=== PATIENT | female | born 1945 | race Caucasian/White ===

== ENCOUNTER 2020-05-08 18:24 | Observation (INO) ==
--- NOTE | 2020-05-08 18:36 | Emergency Department Note ---
History of Present Illness General Chief Complaint: Shortness of Breath/Dyspnea Stated Complaint: SHORTNESS OF BREATH w/ EXERTION Time Seen by Provider: 05/08/20 18:24 History of Present Illness Provider Complaint: chest pain Onset (ago): month(s) 2 Duration: intermittent Onset: during exertion Pain Location: substernal Pain Radiation: none Severity: moderate Current Pain Intensity: 0 Quality: + aching Relieved By: + rest Exacerbated By: + exertion Context: no recent illness, no recent surgery, no recent immobilization, no recent travel, no trauma/injury, no new medications and no history of DVT/PE Associated symptoms: + dyspnea (with exertion); no nausea, no vomiting, no diaphoresis, no palpitations, no fever, no cough and no leg swelling Patient went to her PCPs office in [place] and referred for them to the emergency department because her EKG showed a new bifascicular block. Home Medications Medication Instructions Recorded Confirmed Type aripiprazole 7.5 mg PO QAM 10/05/18 10/05/18 History atorvastatin 10 mg PO QAM 10/05/18 10/05/18 History bupropion HCl 150 mg PO QAM 10/05/18 10/05/18 History bupropion HCl 300 mg PO QAM 10/05/18 10/05/18 History clonazepam 0.5 mg PO TID PRN 10/05/18 10/05/18 History clopidogrel 75 mg PO QAM 10/05/18 10/05/18 History esomeprazole magnesium 40 mg PO QAM 10/05/18 10/05/18 History ibandronate 150 mg PO MONTHLY 10/05/18 10/05/18 History levothyroxine [Synthroid] 125 mcg PO QAM 10/05/18 10/05/18 History lisinopril 10 mg PO PM 10/05/18 10/05/18 History methylphenidate HCl 20 mg PO QAM 10/05/18 10/05/18 History metoprolol succinate [Toprol XL] 25 mg PO QAM 10/05/18 10/05/18 History nortriptyline 50 mg PO HS 10/05/18 10/05/18 History Allergies Allergy/AdvReac Type Severity Reaction Status Date / Time No Known Allergies Allergy Unverified 10/05/18 16:47 Past Med/Surg History Medical History (Updated 05/08/20 @ 19:47 by Souleymane Melo) CKD (chronic kidney disease) Depression GERD (gastroesophageal reflux disease) HLD (hyperlipidemia) HTN (hypertension) Surgical History (Updated 05/08/20 @ 18:35 by Souleymane Melo) No pertinent past surgical history Family History Other Family history non-contributory Social History Smoking Status: Former smoker Preferred Language: Danish Feels Safe at Home: Yes Review of Systems A total of 10 systems reviewed and were otherwise negative Physical Exam Vital Signs Vital Signs - 24 hr 05/08/20 18:33 05/08/20 18:39 05/08/20 18:48 Temperature 36.8 C Temperature Source Oral Pulse Rate 82 76 Pulse Rhythm Regular Respiratory Rate 17 16 Respiratory Effort / Characteristics Non-Labored Spontaneous Non-Labored Spontaneous Respiratory Depth Normal Normal Respiratory Pattern Regular Regular Blood Pressure 159/93 H Blood Pressure Mean 115 Blood Pressure Position Sitting Pulse Oximetry 100 100 Oxygen Delivery Method Room Air Room Air Room Air Sepsis Recent Fever Within 48 Hours No Sepsis New/Unexplained Change in Mental Status No Sepsis Action Taken by Nursing No Action Required Physical Exam GENERAL: She is oriented to person, place, and time. She appears well-developed and well-nourished. She does not appear distressed. HENT: Exam performed. -Head: Normocephalic and atraumatic. -Right Ear: External ear normal. No mastoid tenderness. -Left Ear: External ear normal. No mastoid tenderness. -Mouth/Throat: The oropharynx is clear and moist. No trismus in the jaw. No dental abscesses or uvula swelling. No oropharyngeal exudate or tonsillar abscesses. EYES: Conjunctivae and EOM are normal. Pupils are equal, round, and reactive to light. Right eye exhibits no discharge. Left eye exhibits no discharge. No scleral icterus. NECK: Normal range of motion. Neck supple. No JVD present. No spinous process tenderness present. No carotid bruit present. No rigidity. No tracheal deviation and normal range of motion present. No Brudzinski's sign and no Kernig's sign noted. CV: Normal rate, regular rhythm, normal heart sounds and intact distal pulses. There is no peripheral edema. Palpable radial pulses bue. PULM/CHEST: Effort normal and breath sounds normal. No respiratory distress. No stridor. She has no wheezes. She has no rales. -Chest Wall: She exhibits no tenderness. ABD: The abdomen is soft. Bowel sounds are normal. She has no distension. No mass is present. There is no tenderness. There is no rebound, no guarding, no Martin's sign and no tenderness at McBurney's point. Rovsig negative MUSC/SKEL: Normal range of motion. There is no peripheral edema, tenderness or deformity. LYMPH: No cervical adenopathy. NEURO: She is alert and oriented to person, place, and time. She has normal strength. No cranial nerve deficit or sensory deficit. Coordination and gait normal. GCS eye subscore is 4. GCS verbal subscore is 5. GCS motor subscore is 6. Cerebellar tests wnl. SKIN: Skin is warm and dry. She is not diaphoretic. PSYCH: She has a normal mood and affect. Behavior is normal. Judgment and thought content normal. Course Course 1823: The patient was evaluated in room B10. A complete history and physical ex am was performed. Cardiac monitoring: An order was placed for continuous cardiac monitoring. The monitor shows a rate of 80 with sinus rhythm 1945: Vital signs stable. Patient reports no chest pain at this time. Labs and imaging within normal limits. Patient will be admitted to the [facility] ospitalist team for chest pain rule out ACS. Dr. Mann notified Medical Decision Making Laboratory Data Result diagrams: 05/08/20 18:44 05/08/20 18:44 Labs: Lab Results 05/08/20 05/08/20 05/08/20 Range/Units 18:44 18:44 18:56 WBC 10.37 (4.8-10.8) K/uL RBC 4.37 (4.2-5.4) M/uL Hgb 13.8 (12.0-16.0) g/dL Hct 39.7 (37-47) % MCV 90.8 (80-100) fL MCH 31.6 (25-34) pg MCHC 34.8 (32-36) g/dL RDW Std Deviation 45.9 (36.4-46.3) fL RDW Coeff of Gilda 13.8 (11.5-14.5) % Plt Count 317 (130-400) K/uL MPV 10.1 (7.4-10.4) fL Immature Gran % (Auto) 0.2 % Neut % (Auto) 61.6 % Lymph % (Auto) 26.0 % [place] % (Auto) 11.1 % Eos % (Auto) 0.8 % Baso % (Auto) 0.3 % Neut # (Auto) 6.39 (1.4-6.5) K/uL Lymph # (Auto) 2.70 (1.2-3.4) K/uL [place] # (Auto) 1.15 H (0.11-0.59) K/uL Eos # (Auto) 0.08 (0-0.5) K/uL Baso # (Auto) 0.03 (0-0.2) K/uL Immature Gran # (Auto) 0.02 (0.00-0.02) K/uL Sodium 135 L (136-145) mmol/L Potassium 4.2 (3.5-5.1) mmol/L Chloride 101 (98-107) mmol/L Carbon Dioxide 26 (21-32) mmol/L Anion Gap 8.0 (3-11) BUN 22 H (7-18) mg/dl Creatinine 1.55 H (0.6-1.2) mg/dl Est Cr Clr Drug Dosing 33.7 ml/min Est GFR ( Amer) 37.6 Est GFR (Non-Af Amer) 32.4 BUN/Creatinine Ratio 14.3 (10-20) Glucose 78 (70-99) mg/dl Calcium 10.1 (8.5-10.1) mg/dl Troponin I < 0.015 (0-0.045) ng/ml Lipase 99 (73-393) U/L COVID-19 Eval Order Covid19 IDNow atMIAC SARS-CoV-2, RNA, NAAT (NEGATIVE) 05/08/20 Range/Units 18:56 WBC (4.8-10.8) K/uL RBC (4.2-5.4) M/uL Hgb (12.0-16.0) g/dL Hct (37-47) % MCV (80-100) fL MCH (25-34) pg MCHC (32-36) g/dL RDW Std Deviation (36.4-46.3) fL RDW Coeff of Gilda (11.5-14.5) % Plt Count (130-400) K/uL MPV (7.4-10.4) fL Immature Gran % (Auto) % Neut % (Auto) % Lymph % (Auto) % [place] % (Auto) % Eos % (Auto) % Baso % (Auto) % Neut # (Auto) (1.4-6.5) K/uL Lymph # (Auto) (1.2-3.4) K/uL [place] # (Auto) (0.11-0.59) K/uL Eos # (Auto) (0-0.5) K/uL Baso # (Auto) (0-0.2) K/uL Immature Gran # (Auto) (0.00-0.02) K/uL Sodium (136-145) mmol/L Potassium (3.5-5.1) mmol/L Chloride (98-107) mmol/L Carbon Dioxide (21-32) mmol/L Anion Gap (3-11) BUN (7-18) mg/dl Creatinine (0.6-1.2) mg/dl Est Cr Clr Drug Dosing ml/min Est GFR ( Amer) Est GFR (Non-Af Amer) BUN/Creatinine Ratio (10-20) Glucose (70-99) mg/dl Calcium (8.5-10.1) mg/dl Troponin I (0-0.045) ng/ml Lipase (73-393) U/L COVID-19 Eval Order SARS-CoV-2, RNA, NAAT NEGATIVE (NEGATIVE) Imaging Data Chest x-ray: Radiologist's impression: XR chest 1V portable HISTORY: 74 years-old Female cp sob acute atypical chest pain with shortness of breath COMPARISON: Chest radiograph 10/05/2018 TECHNIQUE: Portable AP view of the chest FINDINGS: Cardiac mediastinal and hilar silhouettes are within normal limits. No pneumothorax, large pleural effusion or overt pulmonary edema. Chronic blunting of the costophrenic angles. Mild linear midlung opacities are noted bilaterally. Degenerative changes of the shoulders and spine. IMPRESSION: Mild bilateral midlung opacities suggest atelectasis/scarring. ACT 112: Negative or not required by law. The above report was generated using voice recognition software. It may contain grammatical, syntax or spelling errors. Electronically signed by: Doyle Cotton M.D. 05/08/2020 7:48 PM Dictated: 05/08/201946Transcribed: 05/08/201946 ECG Data Indication: chest pain and SOB/dyspnea Rate (beats per minute): 78 Rhythm: normal sinus Findings: no ST depression, no ST elevation and no prolonged QT Additional Comments: QRS 156. Bifascicular block present. [facility] Narrative 1823: The patient was evaluated in room B10. A complete history and physical exam was performed. Cardiac monitoring: An order was placed for continuous cardiac monitoring. The monitor shows a rate of 80 with sinus rhythm 1945: Vital signs stable. Patient reports no chest pain at this time. Labs and imaging within normal limits. Patient will be admitted to the [facility] hospitalist team for chest pain rule out ACS. Dr. Mann notified Impression & Plan Chest pain Discharge Plan Visit Data Chief Complaint: Shortness of Breath/Dyspnea Stated Complaint: SHORTNESS OF BREATH w/ EXERTION ED Provider: Souleymane Melo Discharge Problem: Chest pain Patient Disposition: Being Evaluated by Hospitalist Forms Stand Alone Forms: [facility] Prescriptions Prescriptions: No Action atorvastatin 10 mg tablet 10 mg PO QAM RF: 0 clonazepam 0.5 mg tablet 0.5 mg PO TID PRN (Reason: Anxiety) RF: 0 clopidogrel 75 mg tablet 75 mg PO QAM RF: 0 esomeprazole magnesium 40 mg capsule,delayed release(DR/EC) 40 mg PO QAM RF: 0 levothyroxine [Synthroid] 125 mcg tablet 125 mcg PO QAM RF: 0 lisinopril 10 mg tablet 10 mg PO PM RF: 0 methylphenidate HCl 20 mg tablet extended release 20 mg PO QAM RF: 0 metoprolol succinate [Toprol XL] 25 mg tablet extended release 24 hr 25 mg PO QAM RF: 0 nortriptyline 50 mg capsule 50 mg PO HS RF: 0 aripiprazole 15 mg tablet 7.5 mg PO QAM RF: 0 bupropion HCl 300 mg tablet extended release 24 hr 300 mg PO QAM RF: 0 bupropion HCl 150 mg tablet extended release 24 hr 150 mg PO QAM RF: 0 ibandronate 150 mg tablet 150 mg PO MONTHLY RF: 0 Referrals Referrals: Kimberlyn Vasques DO [Primary Care Provider] - Discharge Problem: Chest pain Qualifiers: Chest pain type: unspecified Qualified Code(s): R07.9 - Chest pain, unspecified
[2020-05-08 18:55] LABS: Basophils # (auto) 0.03 K/uL (0-0.2); Basophils % (auto) 0.3 %; Eosinophils # (auto) 0.08 K/uL (0-0.5); Eosinophils % (auto) 0.8 %; Hematocrit (blood only) 39.7 % (37-47); Hemoglobin 13.8 g/dL (12.0-16.0); Immature Granulocytes # (auto) 0.02 K/uL (0.00-0.02); Immature Granulocytes % (auto) 0.2 %; Mean Corpuscular Hemoglobin 31.6 pg (25-34); Mean Corpuscular Hgb Conc 34.8 g/dL (32-36); Mean Corpuscular Volume 90.8 fL (80-100); Mean Platelet Volume 10.1 fL (7.4-10.4); Monocytes # (auto) 1.15 K/uL (0.11-0.59); Monocytes % (auto) 11.1 %; Neutrophils # (auto) 6.39 K/uL (1.4-6.5); Neutrophils % (auto) 61.6 %; Platelet Count 317 K/uL (130-400); RDW Coefficient of Variation 13.8 % (11.5-14.5); RDW Standard Deviation 45.9 fL (36.4-46.3); Red Blood Count 4.37 M/uL (4.2-5.4); White Blood Count 10.37 K/uL (4.8-10.8)
[2020-05-08 19:17] LABS: BUN Creatinine Ratio 14.3 (10-20); Blood Urea Nitrogen 22 mg/dl (7-18); Calcium 10.1 mg/dl (8.5-10.1); Carbon Dioxide 26 mmol/L (21-32); Chloride 101 mmol/L (98-107); Creatinine Clr Calc Pharmacy 33.7 ml/min; Est GFR (African American) 37.6; Est GFR (Non-African American) 32.4; Glucose 78 mg/dl (70-99); Lipase 99 U/L (73-393); Potassium 4.2 mmol/L (3.5-5.1); Sodium 135 mmol/L (136-145)
[2020-05-08 19:22] LABS: Troponin I < 0.015 ng/ml (0-0.045)
--- NOTE | 2020-05-08 19:49 | XRay Report ---
XR chest 1V portable HISTORY: 74 years-old Female cp sob acute atypical chest pain with shortness of breath COMPARISON: Chest radiograph 10/05/2018 TECHNIQUE: Portable AP view of the chest FINDINGS: Cardiac mediastinal and hilar silhouettes are within normal limits. No pneumothorax, large pleural ef fusion or overt pulmonary edema. Chronic blunting of the costophrenic angles. Mild linear midlung opa cities are noted bilaterally. Degenerative changes of the shoulders and spine. IMPRESSION: Mild bilateral midlung opacities suggest atelectasis/scarring. ACT 112: Negative or not required by law. The above report was generated using voice recognition software. It may contain grammatical, syntax o r spelling errors. Electronically signed by: Doyle Cotton M.D. 05/08/2020 7:48 PM
[2020-05-08] MEDS ORDERED: NITROGLYCERIN SL 0.4 MG/TAB TAB SL PRN (21:51)
[2020-05-08] MEDS ORDERED: ONDANSETRON INJ 2 MG/ML 2 ML VIAL IV PRN (21:51)
[2020-05-08] MEDS ORDERED: POLYETHYLENE (MIRALAX) 17 GM PACK PO PRN (21:51)
[2020-05-08] MEDS ORDERED: ACETAMINOPHEN 325 MG TAB PO PRN (21:51)
[2020-05-08 23:47] LABS: D Dimer 590 ug/L FEU (0-500)
[2020-05-09] MEDS: [UNRECOGNIZED DRUG - OTHER] SCH ×2 (00:15→07:52)
--- NOTE | 2020-05-09 00:29 | History and Physical Report ---
DATE OF ADMISSION: 05/08/2020 CHIEF COMPLAINT: Chest pain and shortness of breath on exertion. HISTORY OF PRESENT ILLNESS: This is a 74-year-old female with past medical history significant for hyperlipidemia, hypothyroidism, Raynaud syndrome, essential hypertension, GERD, slow transit constipation, chronic kidney disease stage III, senile osteoporosis, history of tobacco abuse, history of binge eating disorder, history of depression, proteinuria, who comes here because of chest pressure on and off since last [place] time and also shortness of breath on exertion. It comes on its own, but it is more with climbing steps and also shortness of breath more on exertion and lately since last one week it got significantly worse that she is feeling easily fatigued. With minimal exertion she is getting short of breath and after taking rest, it gets resolved. She also recently on 05/05/2020 had an echocardiogram, which was mostly unremarkable and she went to PCP again today and EKG showed new bifascicular block and was advised to come to the ER. Currently resting comfortably and hemodynamically stable. History of headaches in the past, currently no headache. Denies any blurred vision, no earache, no runny nose, no sore throat, no cough, no loss of sense of smell or taste. Appetite is okay. No difficulty swallowing, no nausea, no abdominal pain. Normal bowel and somewhat constipated. Denies any blood in stool or black stool. Normal bladder movements. No rash. ALLERGIES: No known drug allergies. PAST MEDICAL HISTORY: As mentioned above. PAST SURGICAL HISTORY: Left fusion of the thumb, appendectomy, total splenectomy, bilateral cataract surgery, tonsillectomy, adenoidectomy, shoulder arthroscopy, aorto-SMA and celiac bypass, total abdominal hysterectomy with removal of tubes. MEDICATIONS: The patient is on amlodipine 5 mg p.o. a.m., 2.5 mg p.o. p.m., Abilify 2 mg p.o. daily, atorvastatin 10 mg p.o. a.m., bupropion 450 mg p.o. a.m., clonazepam 0.5 mg p.o. t.i.d. p.r.n., Plavix 75 mg p.o. a.m., esomeprazole 40 mg p.o. a.m., levothyroxine 125 mcg p.o. a.m., lisinopril 10 mg p.o. a.m., melatonin 1 mg p.o. at bedtime, methylphenidate 20 mg p.o. a.m. and 10 mg at noon, Toprol-XL 50 mg p.o. daily, nortriptyline 50 mg p.o. at bedtime. FAMILY HISTORY: Significant for mother has arthritis, asthma, and diabetes; father has black lung, blood disorder; sister has arthritis. SOCIAL HISTORY: . Former smoker, quit in 2011, smoked 1 pack a day for 20 years. Alcohol, 2 beers per week. No drug use. REVIEW OF SYSTEMS: As per HPI. Rest of the review of systems negative. PHYSICAL EXAMINATION: GENERAL: The patient is of moderate build, not in acute distress. VITAL SIGNS: Temperature 36.8, pulse 70, respiratory rate 12, blood pressure 165/83, oxygen 94% on room air. HEENT: Pupils equal, round, and reactive to light. Oral mucosa moist. NECK: No JVD, no neck masses. CARDIOVASCULAR: S1, S2 heard, regular rate and rhythm, no murmur, no gallop. RESPIRATORY SYSTEM: Normal AP diameter. No accessory muscle use. No wheezing, no crackles. ABDOMEN: Soft, bowel sounds present, nontender. No distention. CENTRAL NERVOUS SYSTEM: Cranial nerves II through XII grossly intact, nonfocal. EXTREMITIES: No edema, no erythema. LABORATORY DATA: WBC 10.3, hemoglobin 13.8, hematocrit 39.7, platelets 317. Sodium 135, potassium 4.2, chloride 101, bicarbonate 26, BUN 22, creatinine 1.5, serum glucose 78, calcium 9.1. Troponin I less than 0.015. Lipase 93. SARS-CoV-2 RNA negative. IMAGING DATA: Chest x-ray, mild bilateral mid lung opacity suggestive of atelectasis or scarring. EKG: Normal sinus rhythm at the rate of 76, right bundle branch block, left anterior fascicular block, which are new from 2015 EKG. ASSESSMENT AND PLAN: This is a 74-year-old female who presents with chest pain and shortness of breath on exertion. 1. Chest pain and shortness of breath on exertion, on and off since last [place], but got worse since last 1 week. New EKG changes. Initial troponin is negative. Recent echo on 05/05/2020 showed EF of 60% to 64%, mild mitral regurgitation, atrial septal aneurysm. Small right to left shunt with a patent foramen ovale . Left ventricle wall thickness normal. No Left ventricular mural thrombus. Left ventricular wall motion is normal. The patient will be observed in the hospital. We will do the serial enzymes,. We will check a D-dimer and ESR and keep n.p.o. after midnight. Consult cardiology in the a.m. Stress test and stress echo as per cardiology. Further recommendation as per cardiology. 2. History of Raynaud's syndrome: Continue her home amlodipine. 3. History of binge eating disorder, history of depression: Continue bupropion, Abilify, methylphenidate, nortriptyline. 4. Hypertension: Continue her amlodipine, Toprol-XL. We will monitor the blood pressure. 5. History of hyperlipidemia: Continue statin. 6. Gastroesophageal reflux disease: Continue Nexium. 7. Hypothyroidism: Continue Synthroid. 8. History of constipation: Stool softeners. 9. Deep venous thrombosis prophylaxis: Sequential compression devices for now. 10. Disposition: Observation in tele floor. Expect to discharge home and follow with family doctor. Level 1 full code. Addendum : Dimer elevated. Lowerr extremity doppler negative. Can consider CTA chest when Cr improves. MTDD
[2020-05-09] MEDS: SODIUM CHLORIDE 0.9% 1000ML 1,000 ML IV SCH ×2 (01:19→12:00)
[2020-05-09 05:51] LABS: Basophils # (auto) 0.04 K/uL (0-0.2); Basophils % (auto) 0.5 %; Eosinophils # (auto) 0.13 K/uL (0-0.5); Eosinophils % (auto) 1.6 %; Hematocrit (blood only) 39.6 % (37-47); Hemoglobin 13.5 g/dL (12.0-16.0); Immature Granulocytes # (auto) 0.01 K/uL (0.00-0.02); Immature Granulocytes % (auto) 0.1 %; Lymphocytes # (auto) 2.61 K/uL (1.2-3.4); Lymphocytes % (auto) 31.7 %; Mean Corpuscular Hemoglobin 31.2 pg (25-34); Mean Corpuscular Hgb Conc 34.1 g/dL (32-36); Mean Corpuscular Volume 91.5 fL (80-100); Monocytes # (auto) 0.96 K/uL (0.11-0.59); Monocytes % (auto) 11.7 %; Neutrophils # (auto) 4.48 K/uL (1.4-6.5); Neutrophils % (auto) 54.4 %; Platelet Count 298 K/uL (130-400); RDW Coefficient of Variation 13.9 % (11.5-14.5); RDW Standard Deviation 46.6 fL (36.4-46.3); Red Blood Count 4.33 M/uL (4.2-5.4); White Blood Count 8.23 K/uL (4.8-10.8)
[2020-05-09 06:25] LABS: BUN Creatinine Ratio 14.9 (10-20); Blood Urea Nitrogen 20 mg/dl (7-18); Calcium 9.2 mg/dl (8.5-10.1); Carbon Dioxide 27 mmol/L (21-32); Chloride 105 mmol/L (98-107); Creatinine Clr Calc Pharmacy 37.3 ml/min; Glucose 68 mg/dl (70-99); Magnesium 2.3 mg/dl (1.8-2.4); Sodium 139 mmol/L (136-145)
[2020-05-09 06:33] LABS: Troponin I < 0.015 ng/ml (0-0.045)
[2020-05-09] MEDS: LEVOTHYROXINE SODIUM 125 MCG TABLET PO SCH (06:35)
[2020-05-09] MEDS: PANTOprazole 40 MG TAB PO SCH (07:53)
[2020-05-09] MEDS: buPROPion XL 300 MG TABCR PO SCH (07:53)
[2020-05-09] MEDS: buPROPion XL 150 MG TABCR PO SCH (07:53)
[2020-05-09] MEDS: METOPROLOL SUCC 50MG EXT REL TAB PO SCH (07:54)
[2020-05-09] MEDS: amLODIPine BESYLATE 5 MG TAB PO SCH ×2 (07:54→21:36)
[2020-05-09] MEDS: ASPIRIN 81 MG ECTAB PO SCH (07:54)
[2020-05-09] MEDS: ARIPIprazole 1 MG/ML ORAL SOLN 150 ML BTL PO SCH ×2 (07:55→08:02)
[2020-05-09] MEDS: CLOPIDOGREL BISULFATE 75 MG TAB PO SCH (07:55)
[2020-05-09] MEDS: ATORVASTATIN 10 MG TAB PO SCH (07:55)
--- NOTE | 2020-05-09 08:27 | Ultrasound Report ---
BILATERAL LOWER EXTREMITY VENOUS DOPPLER CLINICAL HISTORY: elevated d dimer. dvt? COMPARISON STUDY: Left lower extremity venous Doppler ultrasound August 24, 2015. TECHNIQUE: Sonography of the deep venous system of the bilateral lower extremities was performed. Co mpression and augmentation were evaluated. FINDINGS: The bilateral common femoral, superficial femoral and popliteal veins were compressible. A ugmentation was normal. Flow was shown within the deep calf vessels. IMPRESSION: No evidence of deep venous thrombus within the bilateral lower extremities. ACT 112: Negative or not required by law. Electronically signed by: Jesús Cabrera M.D. 05/09/2020 8:26 AM
--- NOTE | 2020-05-09 10:01 | Cardiology Consultation ---
Date of Consultation May 09, 2020 Assessment & Plan (1) GUZMAN (dyspnea on exertion): (2) Chest pain: (3) Smoking history: (4) COPD (chronic obstructive pulmonary disease): The patient is currently comfortable. Her echocardiogram as an outpatient was unremarkable and did not show any evidence of pulmonary hypertension. Venous studies of the lower extremities were negative. She does have a history of cigarette smoking. Certainly this could be contributing to her shortness of breath if she has underlying COPD. Her EKG is unchanged since 2019 with a right bundle branch block and left anterior hemiblock. Cardiac markers are negative. I think we should consider performing a stress test before the patient is discharged. Unfortunately, the patient cannot ambulate well on a treadmill. She hurt her foot several months ago and states she cannot walk on a treadmill. A consideration could be given for going directly to cardiac catheterization however, the patient does have some renal insufficiency which could put her at risk for dye nephropathy. I think the best solution is to hold the patient until Monday and perform a pharmacologic nuclear stress test. I will have further recommendations following the above. History of Present Illness Attending Physician: Alison Wing MD History of Present Illness This is a 74-year-old female with a history as outlined below. She has no prior significant cardiac history. She is a nondiabetic with a history of GERD. She does have a history of cigarette smoking. Over the past couple weeks she has been experiencing increased fatigue with any type of activity. She states she becomes short of breath with activities such as running the vacuum or walking up a flight of stairs. At times she will have some mild chest discomfort. Her symptoms do resolve with rest. She had an echocardiogram completed as an outpatient on May 05 that was unremarkable. The patient had a venous Doppler of the lower extremities that was negative. Chest x-ray is unremarkable. The patient's EKG reveals a right bundle branch block and a left anterior hemiblock which is unchanged from 2019. Cardiac markers are negative. She currently is resting comfortably and has not had any ongoing symptoms of shortness of breath or chest pain. Past medical history: HISTORY OF TOBACCO USE DYSLIPIDEMIA, GOAL LDL BELOW 100 Raynaud's syndrome GERD (gastroesophageal reflux disease) Senile osteoporosis Acquired hypothyroidism Slow transit constipation Essential hypertension with goal blood pressure less than 140/90 Binge eating disorder Actinic keratosis Isolated proteinuria Recurrent major depressive disorder, in full remission (HCC) Hypertensive kidney disease with stage 3a chronic kidney disease Allergies Allergy/AdvReac Type Severity Reaction Status Date / Time No Known Allergies Allergy Unverified 05/08/20 21:01 Home Medications Medication Instructions Recorded Confirmed Type atorvastatin 10 mg PO QAM 10/05/18 05/08/20 History bupropion HCl 150 mg PO QAM 10/05/18 05/08/20 History bupropion HCl 300 mg PO QAM 10/05/18 05/08/20 History clonazepam 0.5 mg PO TID PRN 10/05/18 05/08/20 History clopidogrel 75 mg PO QAM 10/05/18 05/08/20 History esomeprazole magnesium 40 mg PO QAM 10/05/18 05/08/20 History ibandronate 150 mg PO MONTHLY 10/05/18 05/08/20 History levothyroxine [Synthroid] 125 mcg PO QAM 10/05/18 05/08/20 History lisinopril 10 mg PO PM 10/05/18 05/08/20 History methylphenidate HCl 20 mg PO QAM 10/05/18 05/08/20 History nortriptyline 50 mg PO HS 10/05/18 05/08/20 History amlodipine 2.5 mg PO QPM 05/08/20 05/08/20 History amlodipine 5 mg PO QAM 05/08/20 05/08/20 History aripiprazole 2 mg PO DAILY 05/08/20 05/08/20 History melatonin 1 mg PO HS 05/08/20 05/08/20 History methylphenidate HCl 10 mg PO .QNOON 05/08/20 05/08/20 History metoprolol succinate 50 mg PO DAILY 05/08/20 05/08/20 History Patient History Medical History CKD (chronic kidney disease) Depression GERD (gastroesophageal reflux disease) HLD (hyperlipidemia) HTN (hypertension) Surgical History No pertinent past surgical history Family History Other Family history non-contributory Social History Smoking Status: Former smoker Second Hand Exposure: No; Do You Dip or Chew Tobacco: No; Hx Alcohol Use: Yes Alcohol type: beer Hx Substance Use: No Preferred Language: Nepali Communication Ability: Effective Medical Interpreter Required: No Beliefs That Will Affect Care: None Current Living Situation: Spouse Feels Safe at Home: Yes Safety Concerns: Feels Safe At This Time Assistive Devices: Glasses Review of Systems Review of Systems: All systems reviewed & are unremarkable except as noted in HPI & below Nothing additional to add. Physical Exam Physical Exam: General: no acute distress and stated age Head: normocephalic, no masses, lesions, tenderness or abnormalities Eyes: conjunctiva are pink and non-injected, sclera clear Neck: supple, no adenopathy, no bruits, normal jugular venous pulse, no hepatojugular reflux Chest: normal shape and normal respiratory effort Lungs: clear to auscultation and percussion Cardiac Exam: - regular rate & rhythm, no murmurs gallops or rubs - normal S1, normal S2 Pulses: 2(+) throughout Abdomen: abdomen soft, non-tender, no abnormal masses and no hepatosplenomegaly Musculoskeletal: no gait disturbance, no joint inflammation, no deforming arthritis Extremities: no edema and no cyanosis Neuro: grossly normal exam Results & Data ([facility]) Vital Signs (Past 12 Hours) Vital Signs Temp Pulse Pulse Resp BP Pulse Ox 05/09/20 07:11 36.4 C L 67 18 143/84 H 98 05/09/20 07:00 65 05/09/20 04:32 36.6 C 79 18 122/78 95 05/08/20 22:58 36.6 C 82 16 89/62 L 95 Laboratory Results Laboratory Results - last 24 hr 05/08/20 05/08/20 05/08/20 18:44 18:44 18:56 WBC 10.37 RBC 4.37 Hgb 13.8 Hct 39.7 MCV 90.8 MCH 31.6 MCHC 34.8 RDW Std Deviation 45.9 RDW Coeff of Gilda 13.8 Plt Count 317 MPV 10.1 Immature Gran % (Auto) 0.2 Neut % (Auto) 61.6 Lymph % (Auto) 26.0 Harlan % (Auto) 11.1 Eos % (Auto) 0.8 Baso % (Auto) 0.3 Neut # (Auto) 6.39 Lymph # (Auto) 2.70 Harlan # (Auto) 1.15 H Eos # (Auto) 0.08 Baso # (Auto) 0.03 Immature Gran # (Auto) 0.02 ESR D-Dimer Sodium 135 L Potassium 4.2 Chloride 101 Carbon Dioxide 26 Anion Gap 8.0 BUN 22 H Creatinine 1.55 H Est Cr Clr Drug Dosing 33.7 Est GFR ( Amer) 37.6 Est GFR (Non-Af Amer) 32.4 BUN/Creatinine Ratio 14.3 Glucose 78 Calcium 10.1 Magnesium Troponin I < 0.015 Lipase 99 COVID-19 Eval Order Covid19 IDNow atMWYC SARS-CoV-2, RNA, NAAT 05/08/20 05/08/20 05/08/20 18:56 22:44 22:44 WBC RBC Hgb Hct MCV MCH MCHC RDW Std Deviation RDW Coeff of Gilda Plt Count MPV Immature Gran % (Auto) Neut % (Auto) Lymph % (Auto) Harlan % (Auto) Eos % (Auto) Baso % (Auto) Neut # (Auto) Lymph # (Auto) Harlan # (Auto) Eos # (Auto) Baso # (Auto) Immature Gran # (Auto) ESR D-Dimer 590 H* Sodium Potassium Chloride Carbon Dioxide Anion Gap BUN Creatinine Est Cr Clr Drug Dosing Est GFR ( Amer) Est GFR (Non-Af Amer) BUN/Creatinine Ratio Glucose Calcium Magnesium Troponin I < 0.015 Lipase COVID-19 Eval Order SARS-CoV-2, RNA, NAAT NEGATIVE 05/09/20 05/09/20 05/09/20 05:41 05:41 05:41 WBC 8.23 RBC 4.33 Hgb 13.5 Hct 39.6 MCV 91.5 MCH 31.2 MCHC 34.1 RDW Std Deviation 46.6 H RDW Coeff of Gilda 13.9 Plt Count 298 MPV 10.0 Immature Gran % (Auto) 0.1 Neut % (Auto) 54.4 Lymph % (Auto) 31.7 Harlan % (Auto) 11.7 Eos % (Auto) 1.6 Baso % (Auto) 0.5 Neut # (Auto) 4.48 Lymph # (Auto) 2.61 Harlan # (Auto) 0.96 H Eos # (Auto) 0.13 Baso # (Auto) 0.04 Immature Gran # (Auto) 0.01 ESR 7 D-Dimer Sodium 139 Potassium 4.0 Chloride 105 Carbon Dioxide 27 Anion Gap 7.0 BUN 20 H Creatinine 1.36 H Est Cr Clr Drug Dosing 37.3 Est GFR ( Amer) 44.0 Est GFR (Non-Af Amer) 38.0 BUN/Creatinine Ratio 14.9 Glucose 68 L Calcium 9.2 Magnesium 2.3 Troponin I < 0.015 Lipase COVID-19 Eval Order SARS-CoV-2, RNA, NAAT Diagnostic Findings Echocardiogram completed as an outpatient May 05, 2020: Interpretation Summary The qualitative LV ejection fraction is 60-64% (normal). Mild mitral regurgitation is present. There is an atrial septal aneurysm. There is small right to left shunt through the patent foramen ovale at rest by saline contrast injection. Compared to last available study changes are noted as follows: Injection of agitated saline contrast suggests small patent foramen ovale. Medications Administered Current Inpatient Medications Acetaminophen (Acetaminophen 325 Mg Tab) 650 mg PO Q4H PRN PRN Reason: Pain or Fever Stop: 06/07/20 21:50 Amlodipine Besylate (Amlodipine Besylate 5 Mg Tab) [facility] [place] Stop: 06/08/20 08:59 Last Admin: 05/09/20 07:54 Dose: 5 mg Documented by: Amlodipine Besylate (Amlodipine Besylate 5 Mg Tab) 2.5 mg PO QPM [facility] Stop: 06/08/20 20:59 Aripiprazole (Aripiprazole 1 Mg/Ml Oral Soln 150 Ml Btl) 2 mg PO DAILY [facility] Stop: 06/08/20 08:59 Last Admin: 05/09/20 08:02 Dose: 2 mg Documented by: Aspirin (Aspirin 81 Mg Ectab) 81 mg PO QAM [facility] Stop: 06/08/20 08:59 Last Admin: 05/09/20 07:54 Dose: 81 mg Documented by: Atorvastatin Calcium (Atorvastatin 10 Mg Tab) 10 mg PO QAM [facility] Stop: 06/08/20 08:59 Last Admin: 05/09/20 07:55 Dose: 10 mg Documented by: Bupropion HCl (Bupropion Xl 300 Mg Tabcr) [facility] [place] Stop: 06/08/20 08:59 Last Admin: 05/09/20 07:53 Dose: 300 mg Documented by: Bupropion HCl (Bupropion Xl 150 Mg Tabcr) [facility] [place] Stop: 06/08/20 08:59 Last Admin: 05/09/20 07:53 Dose: 150 mg Documented by: Clonazepam (Clonazepam 0.5 Mg Tab) 0.5 mg PO TID PRN PRN Reason: Anxiety Stop: 06/07/20 21:50 Clopidogrel Bisulfate (Clopidogrel Bisulfate 75 Mg Tab) [facility] [place] Stop: 06/08/20 08:59 Last Admin: 05/09/20 07:55 Dose: 75 mg Documented by: Levothyroxine Sodium (Levothyroxine Sodium 125 Mcg Tablet) 125 mcg PO DAILYBB [facility] Stop: 06/08/20 06:29 Last Admin: 05/09/20 06:35 Dose: 125 mcg Documented by: Lisinopril (Lisinopril 10 Mg Tab) 10 mg PO PM [facility] Stop: 06/08/20 20:59 Melatonin (Melatonin 3 Mg Tab) 1.[address] [facility] Stop: 06/08/20 20:59 Methylphenidate HCl (Methylphenidate Hcl 10 Mg Tablet) 10 mg PO DAILY@1200 [facility] Stop: 05/23/20 11:59 Last Admin: 05/09/20 12:08 Dose: 10 mg Documented by: Methylphenidate HCl (Methylphenidate Hcl 10 Mg Tablet) 20 mg PO [facility] Stop: 05/24/20 08:59 Metoprolol Succinate (Metoprolol Succ 50mg Ext Rel Tab) 50 mg PO DAILY [facility] Stop: 06/08/20 08:59 Last Admin: 05/09/20 07:54 Dose: 50 mg Documented by: Nitroglycerin (Nitroglycerin Sl 0.4 Mg/Tab Tab) 0.4 mg SL UD PRN PRN Reason: Chest Pain Stop: 06/07/20 21:50 Nortriptyline HCl (Nortriptyline Hcl 25 Mg Cap) [address] [facility] Stop: 06/08/20 20:59 Ondansetron HCl (Ondansetron Inj 2 Mg/Ml 2 Ml Vial) 4 mg IV Q6H PRN PRN Reason: Nausea Stop: 06/07/20 21:50 Pantoprazole Sodium (Pantoprazole 40 Mg Tab) 40 mg PO [facility] Stop: 06/08/20 08:59 Last Admin: 05/09/20 07:53 Dose: 40 mg Documented by: Polyethylene Glycol (Polyethylene (Miralax) 17 Gm Pack) 17 gm PO DAILY PRN PRN Reason: Constipation Stop: 06/07/20 21:50 (1) Chest pain Chest pain type: unspecified Qualified Code(s): R07.9 - Chest pain, unspecified
[2020-05-09] MEDS: METHYLPHENIDATE HCL 10 MG TABLET PO SCH (12:08)
--- NOTE | 2020-05-09 13:07 | Electrocardiogram Report ---
Test Reason : Blood Pressure : / mmHG Vent. Rate : 078 BPM Atrial Rate : 078 BPM P-R Int : 190 ms QRS Dur : 156 ms QT Int : 422 ms P-R-T Axes : 080 -47 066 degrees QTc Int : 481 ms Normal sinus rhythm Right bundle branch block Left anterior fascicular block Abnormal ECG When compared with ECG of 05-OCT-2018 16:15, QRS duration has increased Confirmed by Sincere Tamayo ([id number]) on 05/09/2020 1:07:17 PM Referred By: REFERRED SELF Confirmed By:Davie Tamayo
--- NOTE | 2020-05-09 13:12 | Electrocardiogram Report ---
Test Reason : Blood Pressure : / mmHG Vent. Rate : 067 BPM Atrial Rate : 067 BPM P-R Int : 186 ms QRS Dur : 150 ms QT Int : 440 ms P-R-T Axes : 083 -55 056 degrees QTc Int : 464 ms Normal sinus rhythm Right bundle branch block Left anterior fascicular block Bifascicular block Abnormal ECG When compared with ECG of 08-MAY-2020 18:34, (unconfirmed) T wave inversion more evident in Anterior leads Confirmed by Sincere Tamayo ([id number]) on 05/09/2020 1:11:54 PM Referred By: REFERRED SELF Confirmed By:Davie Tamayo
--- NOTE | 2020-05-09 19:00 | Hospitalist Progress Note ---
Date of Service May 09, 2020 Assessment & Plan (1) Chest pain: admitted with chest pain , GUZMAN symptoms has resolved comfortable no recurrence of symptoms troponin negative , EKG no new change appreciate input from cardiology pt will need to have complete cardiac eval plan for Pharmacological Nc stress test on Monday (2) Depression: cont out pt meds (3) CKD (chronic kidney disease): cr at baseline Admission and Anticipated Discharge Date Admission Date: May 08, 2020 Subjective Follow up visit for chest pain eval : comfortable now , no recurrence of symptoms no cough or SOB no fever or chills Review of Systems Review of Systems: All systems reviewed & are unremarkable except as noted in HPI & below Physical Exam Constitutional: WD/WN, vitals as above Eyes: PERRL, conjunctivae normal, anicteric sclerae ENMT: external ear and nose normal, oropharynx normal Neck: trachea midline, no thyromegaly Respiratory: normal respiratory effort, lungs clear to auscultation Cardiovascular: RRR, no murmur, no edema Gastrointestinal (Abdomen): normal bowel sounds, soft, nontender, no hepatosplenomegaly Musculoskeletal: no cyanosis or clubbing, extremities motor strength 5/5 Skin: no rashes, warm and dry Neurologic: PERRL, EOMI, accommodation nl, no face palsy, no dysarthria Psychiatric: A+Ox3, euthymic affect Results & Data Results & Data ([facility]) Vital Signs (Past 12 Hours) Vital Signs Temp Pulse Pulse Resp BP Pulse Ox 05/09/20 15:36 36.7 C 68 16 146/79 H 99 05/09/20 11:19 36.6 C 74 19 127/80 98 05/09/20 07:11 36.4 C L 67 18 143/84 H 98 05/09/20 07:00 65 (1) Chest pain Chest pain type: unspecified Qualified Code(s): R07.9 - Chest pain, unspecified
[2020-05-09] MEDS: MELATONIN 3 MG TAB PO SCH (21:34)
[2020-05-09] MEDS: clonazePAM 0.5 MG TAB PO PRN (21:34)
[2020-05-09] MEDS: NORTRIPTYLINE HCL 25 MG CAP PO SCH (21:36)
[2020-05-09] MEDS: lisinopril 10 MG TAB PO SCH (21:37)
[2020-05-10] MEDS: LEVOTHYROXINE SODIUM 125 MCG TABLET PO SCH (06:31)
[2020-05-10 06:55] LABS: BUN Creatinine Ratio 16.3 (10-20); Calcium 8.5 mg/dl (8.5-10.1); Creatinine Clr Calc Pharmacy 44.3 ml/min; Est GFR (African American) 54.5; Potassium 4.2 mmol/L (3.5-5.1)
[2020-05-10] MEDS: amLODIPine BESYLATE 5 MG TAB PO SCH ×2 (09:41→21:23)
[2020-05-10] MEDS: ATORVASTATIN 10 MG TAB PO SCH (09:42)
[2020-05-10] MEDS: buPROPion XL 150 MG TABCR PO SCH (09:42)
[2020-05-10] MEDS: buPROPion XL 300 MG TABCR PO SCH (09:43)
[2020-05-10] MEDS: METOPROLOL SUCC 50MG EXT REL TAB PO SCH (09:43)
[2020-05-10] MEDS: PANTOprazole 40 MG TAB PO SCH (09:43)
[2020-05-10] MEDS: ASPIRIN 81 MG ECTAB PO SCH (09:44)
[2020-05-10] MEDS: CLOPIDOGREL BISULFATE 75 MG TAB PO SCH (09:44)
[2020-05-10] MEDS: ARIPIprazole 1 MG/ML ORAL SOLN 150 ML BTL PO SCH (09:45)
[2020-05-10] MEDS: METHYLPHENIDATE HCL 10 MG TABLET PO SCH ×2 (09:49→12:29)
--- NOTE | 2020-05-10 12:23 | Cardiology Progress Note ---
Date of Service May 10, 2020 Assessment & Plan (1) GUZMAN (dyspnea on exertion): (2) Chest pain: (3) Smoking history: (4) COPD (chronic obstructive pulmonary disease): The patient is scheduled for a pharmacologic nuclear stress test in the morning. I will have further recommendations following that study. Admission and Anticipated Discharge Date Admission Date: May 09, 2020 Subjective The patient had an uneventful night however, this morning she felt a little short of breath and some mild chest discomfort which improved after she ate her breakfast. Review of Systems Review of Systems: All systems reviewed & are unremarkable except as noted in Subjective Physical Exam Physical Exam: General: no acute distress and stated age Head: normocephalic, no masses, lesions, tenderness or abnormalities Eyes: conjunctiva are pink and non-injected, sclera clear Neck: supple, no adenopathy, no bruits, normal jugular venous pulse, no hepatojugular reflux Chest: normal shape and normal respiratory effort Lungs: clear to auscultation and percussion Cardiac Exam: - regular rate & rhythm, no murmurs gallops or rubs - normal S1, normal S2 Pulses: 2(+) throughout Abdomen: abdomen soft, non-tender, no abnormal masses and no hepatosplenomegaly Musculoskeletal: no gait disturbance, no joint inflammation, no deforming arthritis Extremities: no edema and no cyanosis Neuro: grossly normal exam Results & Data ([facility]) Vital Signs (Past 12 Hours) Vital Signs Temp Pulse Pulse Resp BP Pulse Ox 05/10/20 09:30 72 102/70 05/10/20 08:18 36.5 C 83 16 96/64 L 97 05/10/20 07:00 69 05/10/20 06:22 36.6 C 73 18 100/57 L 97 05/10/20 04:39 36.6 C 78 18 109/73 99 Laboratory Results Laboratory Results - last 24 hr 05/10/20 06:07 Sodium 141 Potassium 4.2 Chloride 109 H Carbon Dioxide 26 Anion Gap 6.0 BUN 19 H Creatinine 1.14 Est Cr Clr Drug Dosing 44.3 Est GFR ( Amer) 54.5 Est GFR (Non-Af Amer) 47.0 BUN/Creatinine Ratio 16.3 Glucose 93 Calcium 8.5 Medications Administered Current Inpatient Medications Acetaminophen (Acetaminophen 325 Mg Tab) 650 mg PO Q4H PRN PRN Reason: Pain or Fever Stop: 06/07/20 21:50 Last Admin: 05/10/20 09:40 Dose: 650 mg Documented by: Amlodipine Besylate (Amlodipine Besylate 5 Mg Tab) [facility] [place] Stop: 06/08/20 08:59 Last Admin: 05/10/20 09:41 Dose: 5 mg Documented by: Amlodipine Besylate (Amlodipine Besylate 5 Mg Tab) 2.5 mg PO QPM [facility] Stop: 06/08/20 20:59 Last Admin: 05/09/20 21:36 Dose: 2.5 mg Documented by: Aripiprazole (Aripiprazole 1 Mg/Ml Oral Soln 150 Ml Btl) 2 mg PO DAILY [facility] Stop: 06/08/20 08:59 Last Admin: 05/10/20 09:45 Dose: 2 mg Documented by: Aspirin (Aspirin 81 Mg Ectab) 81 mg PO [facility] Stop: 06/08/20 08:59 Last Admin: 05/10/20 09:44 Dose: 81 mg Documented by: Atorvastatin Calcium (Atorvastatin 10 Mg Tab) 10 mg PO [facility] Stop: 06/08/20 08:59 Last Admin: 05/10/20 09:42 Dose: 10 mg Documented by: Bupropion HCl (Bupropion Xl 300 Mg Tabcr) 300 mg PO [facility] Stop: 06/08/20 08:59 Last Admin: 05/10/20 09:43 Dose: 300 mg Documented by: Bupropion HCl (Bupropion Xl 150 Mg Tabcr) 150 mg PO [facility] Stop: 06/08/20 08:59 Last Admin: 05/10/20 09:42 Dose: 150 mg Documented by: Clonazepam (Clonazepam 0.5 Mg Tab) 0.5 mg PO TID PRN PRN Reason: Anxiety Stop: 06/07/20 21:50 Last Admin: 05/09/20 21:34 Dose: 0.5 mg Documented by: Clopidogrel Bisulfate (Clopidogrel Bisulfate 75 Mg Tab) 75 mg PO [facility] Stop: 06/08/20 08:59 Last Admin: 05/10/20 09:44 Dose: 75 mg Documented by: Levothyroxine Sodium (Levothyroxine Sodium 125 Mcg Tablet) [facility] Stop: 06/08/20 06:29 Last Admin: 05/10/20 06:31 Dose: 125 mcg Documented by: Lisinopril (Lisinopril 10 Mg Tab) 10 mg PO PM [facility] Stop: 06/08/20 20:59 Last Admin: 05/09/20 21:37 Dose: 10 mg Documented by: Melatonin (Melatonin 3 Mg Tab) 1.5 mg PO HS [facility] Stop: 06/08/20 20:59 Last Admin: 05/09/20 21:34 Dose: 1.5 mg Documented by: Methylphenidate HCl (Methylphenidate Hcl 10 Mg Tablet) 10 mg PO DAILY@1200 [facility] Stop: 05/23/20 11:59 Last Admin: 05/09/20 12:08 Dose: 10 mg Documented by: Methylphenidate HCl (Methylphenidate Hcl 10 Mg Tablet) 20 mg PO QAM [facility] Stop: 05/24/20 08:59 Last Admin: 05/10/20 09:49 Dose: 20 mg Documented by: Metoprolol Succinate (Metoprolol Succ 50mg Ext Rel Tab) 50 mg PO DAILY [facility] Stop: 06/08/20 08:59 Last Admin: 05/10/20 09:43 Dose: 50 mg Documented by: Nitroglycerin (Nitroglycerin Sl 0.4 Mg/Tab Tab) 0.4 mg SL UD PRN PRN Reason: Chest Pain Stop: 06/07/20 21:50 Nortriptyline HCl (Nortriptyline Hcl 25 Mg Cap) 50 mg PO [facility] Stop: 06/08/20 20:59 Last Admin: 05/09/20 21:36 Dose: 50 mg Documented by: Ondansetron HCl (Ondansetron Inj 2 Mg/Ml 2 Ml Vial) 4 mg IV Q6H PRN PRN Reason: Nausea Stop: 06/07/20 21:50 Pantoprazole Sodium (Pantoprazole 40 Mg Tab) 40 mg PO [facility] Stop: 06/08/20 08:59 Last Admin: 05/10/20 09:43 Dose: 40 mg Documented by: Polyethylene Glycol (Polyethylene (Miralax) 17 Gm Pack) 17 gm PO DAILY PRN PRN Reason: Constipation Stop: 06/07/20 21:50 Last Admin: 05/10/20 09:40 Dose: 17 gm Documented by: (1) Chest pain Chest pain type: unspecified Qualified Code(s): R07.9 - Chest pain, unspecified
--- NOTE | 2020-05-10 13:18 | Electrocardiogram Report ---
Test Reason : Blood Pressure : / mmHG Vent. Rate : 067 BPM Atrial Rate : 067 BPM P-R Int : 190 ms QRS Dur : 142 ms QT Int : 400 ms P-R-T Axes : 077 -46 -17 degrees QTc Int : 422 ms Normal sinus rhythm Right bundle branch block Left anterior fascicular block Bifascicular block T wave abnormality, consider lateral ischemia Abnormal ECG Confirmed by Sincere Tamayo ([id number]) on 05/10/2020 1:18:26 PM Referred By: REFERRED SELF Confirmed By:Davie Tamayo
[2020-05-10] MEDS: clonazePAM 0.5 MG TAB PO PRN ×2 (16:20→21:22)
--- NOTE | 2020-05-10 17:19 | Hospitalist Progress Note ---
Date of Service May 10, 2020 Assessment & Plan (1) Chest pain: admitted with chest pain , GUZMAN symptoms has resolved comfortable no recurrence of symptoms troponin negative , EKG no new change appreciate input from cardiology plan for Pharmacological Nc stress test tomorrow (2) Depression: cont out pt meds (3) CKD (chronic kidney disease): cr at baseline Admission and Anticipated Discharge Date Admission Date: May 09, 2020 Subjective The patient had an uneventful night however, complains of epigastric discomfort , acid reflux requests for tums scheduled for Nc Cardiac stress test tomorrow pt continues to worry about her progression of fatigue GUZMAN which has been getting worse past few weeks Physical Exam Constitutional: WD/WN, vitals as above Eyes: PERRL, conjunctivae normal, anicteric sclerae ENMT: external ear and nose normal, oropharynx normal Neck: trachea midline, no thyromegaly Respiratory: normal respiratory effort, lungs clear to auscultation Cardiovascular: RRR, no murmur, no edema Gastrointestinal (Abdomen): normal bowel sounds, soft, nontender, no hepatosplenomegaly Musculoskeletal: no cyanosis or clubbing, extremities motor strength 5/5 Skin: no rashes, warm and dry Neurologic: PERRL, EOMI, accommodation nl, no face palsy, no dysarthria Psychiatric: A+Ox3, euthymic affect Results & Data Results & Data ([facility]) Vital Signs (Past 12 Hours) Vital Signs Temp Pulse Pulse Resp BP Pulse Ox 05/10/20 16:33 36.3 C L 68 17 146/87 H 100 05/10/20 15:00 74 05/10/20 12:57 36.5 C 63 19 127/80 96 05/10/20 09:30 72 102/70 05/10/20 08:18 36.5 C 83 16 96/64 L 97 05/10/20 07:00 69 05/10/20 06:22 36.6 C 73 18 100/57 L 97 (1) Chest pain Chest pain type: unspecified Qualified Code(s): R07.9 - Chest pain, unspecified
[2020-05-10] MEDS: CALCIUM CARBONATE 500 MG CHEWABLE TAB PO PRN (18:43)
[2020-05-10] MEDS: MELATONIN 3 MG TAB PO SCH (21:22)
[2020-05-10] MEDS: NORTRIPTYLINE HCL 25 MG CAP PO SCH (21:24)
[2020-05-10] MEDS: lisinopril 10 MG TAB PO SCH (21:25)
[2020-05-11] MEDS: LEVOTHYROXINE SODIUM 125 MCG TABLET PO SCH (04:50)
[2020-05-11] MEDS: METHYLPHENIDATE HCL 10 MG TABLET PO SCH ×2 (08:01→15:42)
[2020-05-11] MEDS: PANTOprazole 40 MG TAB PO SCH (08:01)
[2020-05-11] MEDS: buPROPion XL 150 MG TABCR PO SCH (08:02)
[2020-05-11] MEDS: buPROPion XL 300 MG TABCR PO SCH (08:02)
[2020-05-11] MEDS: ARIPIprazole 1 MG/ML ORAL SOLN 150 ML BTL PO SCH (08:02)
[2020-05-11] MEDS: ASPIRIN 81 MG ECTAB PO SCH (08:02)
[2020-05-11] MEDS: CLOPIDOGREL BISULFATE 75 MG TAB PO SCH (08:02)
[2020-05-11] MEDS: ATORVASTATIN 10 MG TAB PO SCH (08:03)
[2020-05-11] MEDS: clonazePAM 0.5 MG TAB PO PRN (08:04)
--- NOTE | 2020-05-11 09:02 | Communication Note ---
Date of Service: May 11, 2020 The patient was having epigastric pressure with the sense of shortness of breath and nausea this morning which lasted for about half an hour. She was he modynamically stable during that time. During my examination she did not have any more symptoms and she was feeling fine. Her EKG did not show any significant change and she was ordered for a repeat troponin. She is going to have a stress test sometime this morning provided the repeat troponins unremarkable. She was feeling a lot better following my examination and reassurance. Dr Rocky Cassidy
[2020-05-11] MEDS ORDERED: REGADENOSON 0.4 MG/5 ML SYR IV ONE (13:22)
[2020-05-11] MEDS: METOPROLOL SUCC 50MG EXT REL TAB PO SCH (13:35)
[2020-05-11] MEDS: amLODIPine BESYLATE 5 MG TAB PO SCH ×2 (13:35→20:32)
--- NOTE | 2020-05-11 15:42 | Myocardial Perfusion Study ---
Date of Service May 11, 2020 Myocardial Perfusion Study Blk Myocardial Perfusion Study Report The patient received 10.4 mCi of tech 90 9M sestamibi intravenously at 12:30 PM. 1 hour following the injection imaging of the heart was performed in the same projections. The patient then received a Lexiscan infusion according to protocol followed by 34 mCi of tech 90 9M sestamibi injected at 2:05 PM on May 11, 2020. Following the injection, imaging of the heart was performed in multiple projections. During and following the Lexiscan infusion the patient had minimal symptoms. Her baseline EKG revealed a sinus rhythm with right bundle branch block and left anterior hemiblock. There were no significant EKG changes following the Lexiscan infusion. No significant arrhythmias. When comparing the rest to stress sestamibi scans there is homogeneous perfusion on both the rest and stress images. Gated analysis was performed and there is normal LV function. The qualitative estimated left ventricular ejection fraction is 60%. Overall, this pharmacologic nuclear stress test is negative for ischemia and denotes a low probability for hemodynamically significant coronary artery disease.
--- NOTE | 2020-05-11 16:02 | Cardiology Progress Note ---
Date of Service May 11, 2020 Assessment & Plan (1) GUZMAN (dyspnea on exertion): (2) Chest pain: (3) Smoking history: (4) COPD (chronic obstructive pulmonary disease): The patient had a pharmacologic nuclear stress test today which was negative. I discussed the results with the patient. She is still having this episodic shortness of breath. She admits that she had a very heavy smoking habit up until her mid 50s. She may have COPD and perhaps starting her on an inhaler may benefit her symptoms. At this point I would not recommend any additional cardiac testing. The only other cardiac testing we could do would be an invasive procedure. Admission and Anticipated Discharge Date Admission Date: May 09, 2020 Subjective The patient is still experiencing some shortness of breath which is episodic. It occurs sometimes with activity but also at rest. Review of Systems Review of Systems: All systems reviewed & are unremarkable except as noted in Subjective Physical Exam Physical Exam: General: no acute distress and stated age Head: normocephalic, no masses, lesions, tenderness or abnormalities Eyes: conjunctiva are pink and non-injected, sclera clear Neck: supple, no adenopathy, no bruits, normal jugular venous pulse, no hepatojugular reflux Chest: normal shape and normal respiratory effort Lungs: clear to auscultation and percussion Cardiac Exam: - regular rate & rhythm, no murmurs gallops or rubs - normal S1, normal S2 Pulses: 2(+) throughout Abdomen: abdomen soft, non-tender, no abnormal masses and no hepatosplenomegaly Musculoskeletal: no gait disturbance, no joint inflammation, no deforming arthritis Extremities: no edema and no cyanosis Neuro: grossly normal exam Results & Data ([facility]) Vital Signs (Past 12 Hours) Vital Signs Temp Pulse Pulse Resp BP BP Pulse Ox 05/11/20 11:42 35.6 C L 77 20 119/75 98 05/11/20 08:24 36.4 C L 80 24 127/84 73 L 05/11/20 07:51 36.3 C L 80 22 122/84 100 05/11/20 07:22 36.4 C L 66 20 108/71 100 05/11/20 07:00 57 L Laboratory Results Laboratory Results - last 24 hr 05/11/20 05/11/20 08:26 09:03 POC Glucose 80 Troponin I < 0.015 Diagnostic Findings The patient had a pharmacologic nuclear stress test today. The report is on the chart. It was a negative study. Medications Administered Current Inpatient Medications Acetaminophen (Acetaminophen 325 Mg Tab) 650 mg PO Q4H PRN PRN Reason: Pain or Fever Stop: 06/07/20 21:50 Last Admin: 05/10/20 09:40 Dose: 650 mg Documented by: Amlodipine Besylate (Amlodipine Besylate 5 Mg Tab) [facility] [place]: 06/08/20 08:59 Last Admin: 05/11/20 13:35 Dose: Not Given Documented by: Amlodipine Besylate (Amlodipine Besylate 5 Mg Tab) 2.5 mg PO QPM [facility] Stop: 06/08/20 20:59 Last Admin: 05/10/20 21:23 Dose: 2.5 mg Documented by: Aripiprazole (Aripiprazole 1 Mg/Ml Oral Soln 150 Ml Btl) 2 mg PO DAILY [facility] Stop: 06/08/20 08:59 Last Admin: 05/11/20 08:02 Dose: 2 mg Documented by: Aspirin (Aspirin 81 Mg Ectab) [facility] [place] Stop: 06/08/20 08:59 Last Admin: 05/11/20 08:02 Dose: 81 mg Documented by: Atorvastatin Calcium (Atorvastatin 10 Mg Tab) 10 mg PO [facility] Stop: 06/08/20 08:59 Last Admin: 05/11/20 08:03 Dose: 10 mg Documented by: Bupropion HCl (Bupropion Xl 300 Mg Tabcr) 300 mg PO [facility] Stop: 06/08/20 08:59 Last Admin: 05/11/20 08:02 Dose: 300 mg Documented by: Bupropion HCl (Bupropion Xl 150 Mg Tabcr) 150 mg PO [facility] Stop: 06/08/20 08:59 Last Admin: 05/11/20 08:02 Dose: 150 mg Documented by: Calcium Carbonate (Calcium Carbonate 500 Mg Chewable Tab) 500 mg PO Q6H PRN PRN Reason: Indigestion Stop: 06/09/20 16:37 Last Admin: 05/10/20 18:43 Dose: 500 mg Documented by: Clonazepam (Clonazepam 0.5 Mg Tab) 0.5 mg PO TID PRN PRN Reason: Anxiety Stop: 06/07/20 21:50 Last Admin: 05/11/20 08:04 Dose: 0.5 mg Documented by: Clopidogrel Bisulfate (Clopidogrel Bisulfate 75 Mg Tab) [facility] [place] Stop: 06/08/20 08:59 Last Admin: 05/11/20 08:02 Dose: 75 mg Documented by: Levothyroxine Sodium (Levothyroxine Sodium 125 Mcg Tablet) 125 mcg PO DAILYBB [facility] Stop: 06/08/20 06:29 Last Admin: 05/11/20 04:50 Dose: 125 mcg Documented by: Lisinopril (Lisinopril 10 Mg Tab) 10 mg PO PM [facility] Stop: 06/08/20 20:59 Last Admin: 05/10/20 21:25 Dose: 10 mg Documented by: Melatonin (Melatonin 3 Mg Tab) 1.5 mg PO [facility] Stop: 06/08/20 20:59 Last Admin: 05/10/20 21:22 Dose: 1.5 mg Documented by: Methylphenidate HCl (Methylphenidate Hcl 10 Mg Tablet) 10 mg PO DAILY@1200 [facility] Stop: 05/23/20 11:59 Last Admin: 05/11/20 15:42 Dose: 10 mg Documented by: Methylphenidate HCl (Methylphenidate Hcl 10 Mg Tablet) [facility] [place] Stop: 05/24/20 08:59 Last Admin: 05/11/20 08:01 Dose: 20 mg Documented by: Metoprolol Succinate (Metoprolol Succ 50mg Ext Rel Tab) 50 mg PO DAILY [facility] Stop: 06/08/20 08:59 Last Admin: 05/11/20 13:35 Dose: Not Given Documented by: Nitroglycerin (Nitroglycerin Sl 0.4 Mg/Tab Tab) 0.4 mg SL UD PRN PRN Reason: Chest Pain Stop: 06/07/20 21:50 Nortriptyline HCl (Nortriptyline Hcl 25 Mg Cap) 50 mg PO [facility] Stop: 06/08/20 20:59 Last Admin: 05/10/20 21:24 Dose: 50 mg Documented by: Ondansetron HCl (Ondansetron Inj 2 Mg/Ml 2 Ml Vial) 4 mg IV Q6H PRN PRN Reason: Nausea Stop: 06/07/20 21:50 Pantoprazole Sodium (Pantoprazole 40 Mg Tab) 40 mg PO [facility] Stop: 06/08/20 08:59 Last Admin: 05/11/20 08:01 Dose: 40 mg Documented by: Polyethylene Glycol (Polyethylene (Miralax) 17 Gm Pack) 17 gm PO DAILY PRN PRN Reason: Constipation Stop: 06/07/20 21:50 Last Admin: 05/10/20 09:40 Dose: 17 gm Documented by: (1) Chest pain Chest pain type: unspecified Qualified Code(s): R07.9 - Chest pain, unspecified
--- NOTE | 2020-05-11 16:35 | Electrocardiogram Report ---
Test Reason : Blood Pressure : / mmHG Vent. Rate : 069 BPM Atrial Rate : 069 BPM P-R Int : 198 ms QRS Dur : 140 ms QT Int : 418 ms P-R-T Axes : 080 -42 009 degrees QTc Int : 447 ms Normal sinus rhythm Left axis deviation Right bundle branch block Abnormal ECG When compared with ECG of 10-MAY-2020 07:01, T wave inversion no longer evident in Lateral leads Confirmed by Sincere Tamayo ([id number]) on 05/11/2020 4:35:18 PM Referred By: REFERRED SELF Confirmed By:Davie Tamayo
--- NOTE | 2020-05-11 17:25 | Hospitalist Progress Note ---
Date of Service May 11, 2020 Assessment & Plan (1) Chest pain: admitted with chest pain , GUZMAN continues to have intermittent symptoms possible component of underling pulm disease troponin negative , EKG no new change appreciate input from cardiology plan for Pharmacological [place] stress negative hx of smoking years back ordered for [facility] tx (2) Depression: cont out pt meds (3) CKD (chronic kidney disease): cr at baseline continue hospital stay for ongoing symptoms of resp distress , GUZMAN ok to dc tele plan of care updated to pt and all questions answered Admission and Anticipated Discharge Date Admission Date: May 09, 2020 Subjective cardiac stress test has been negative for stress induced ischemia pt is very anxious and tearful , worried that she is still having the symptoms of fatigue , GUZMAN , chest heaviness d/w cardiology , will assess pt for possible COPD ordered for [facility] tx , will benefit with out pt PFT Physical Exam Constitutional: WD/WN, vitals as above Eyes: PERRL, conjunctivae normal, anicteric sclerae ENMT: external ear and nose normal, oropharynx normal Neck: trachea midline, no thyromegaly Respiratory: normal respiratory effort, lungs clear to auscultation Cardiovascular: RRR, no murmur, no edema Gastrointestinal (Abdomen): normal bowel sounds, soft, nontender, no hepatosplenomegaly Musculoskeletal: no cyanosis or clubbing, extremities motor strength 5/5 Skin: no rashes, warm and dry Neurologic: PERRL, EOMI, accommodation nl, no face palsy, no dysarthria Psychiatric: A+Ox3, euthymic affect Results & Data Results & Data ([facility]) Vital Signs (Past 12 Hours) Vital Signs Temp Pulse Pulse Resp BP BP Pulse Ox 05/11/20 16:02 36.5 C 78 20 134/86 99 05/11/20 15:45 69 05/11/20 11:42 35.6 C L 77 20 119/75 98 05/11/20 08:24 36.4 C L 80 24 127/84 73 L 05/11/20 07:51 36.3 C L 80 22 122/84 100 05/11/20 07:22 36.4 C L 66 20 108/71 100 05/11/20 07:00 57 L (1) Chest pain Chest pain type: unspecified Qualified Code(s): R07.9 - Chest pain, unspecified
[2020-05-11] MEDS: ALBUT/IPRATROP 3MG/0.5MG NEB 3 ML VIAL NEB SCH ×2 (19:35→22:22)
[2020-05-11] MEDS: lisinopril 10 MG TAB PO SCH (20:33)
[2020-05-11] MEDS: NORTRIPTYLINE HCL 25 MG CAP PO SCH (20:33)
[2020-05-11] MEDS: MELATONIN 3 MG TAB PO SCH (21:50)
[2020-05-12] MEDS: ALBUT/IPRATROP 3MG/0.5MG NEB 3 ML VIAL NEB SCH ×3 (02:14→11:06)
[2020-05-12] MEDS: LEVOTHYROXINE SODIUM 125 MCG TABLET PO SCH (06:29)
[2020-05-12] MEDS: METOPROLOL SUCC 50MG EXT REL TAB PO SCH (08:11)
[2020-05-12] MEDS: PANTOprazole 40 MG TAB PO SCH (08:11)
[2020-05-12] MEDS: amLODIPine BESYLATE 5 MG TAB PO SCH (08:11)
[2020-05-12] MEDS: ATORVASTATIN 10 MG TAB PO SCH (08:11)
[2020-05-12] MEDS: buPROPion XL 150 MG TABCR PO SCH (08:12)
[2020-05-12] MEDS: CLOPIDOGREL BISULFATE 75 MG TAB PO SCH (08:12)
[2020-05-12] MEDS: ASPIRIN 81 MG ECTAB PO SCH (08:12)
[2020-05-12] MEDS: buPROPion XL 300 MG TABCR PO SCH (08:13)
[2020-05-12] MEDS: ARIPIprazole 1 MG/ML ORAL SOLN 150 ML BTL PO SCH (08:13)
[2020-05-12] MEDS: METHYLPHENIDATE HCL 10 MG TABLET PO SCH ×2 (08:21→11:59)
[2020-05-12] MEDS: clonazePAM 0.5 MG TAB PO PRN (09:07)
[2020-05-12] MEDS: CALCIUM CARBONATE 500 MG CHEWABLE TAB PO PRN (15:00)
--- NOTE | 2020-05-12 15:12 | Discharge Summary ---
Date of Service May 12, 2020 Admission HPI Per Admitting Provider DICTATED BY: Marvin Mann MD DATE OF ADMISSION: 05/08/2020 CHIEF COMPLAINT: Chest pain and shortness of breath on exertion. HISTORY OF PRESENT ILLNESS: This is a 74-year-old female with past medical history significant for hyperlipidemia, hypothyroidism, Raynaud syndrome, essential hypertension, GERD, slow transit constipation, chronic kidney disease stage III, senile osteoporosis, history of tobacco abuse, history of binge eating disorder, history of depression, proteinuria, who comes here because of chest pressure on and off since last [place] time and also shortness of breath on exertion. It comes on its own, but it is more with climbing steps and also shortness of breath more on exertion and lately since last one week it got significantly worse that she is feeling easily fatigued. With minimal exertion she is getting short of breath and after taking rest, it gets resolved. She also recently on 05/05/2020 had an echocardiogram, which was mostly unremarkable and she went to PCP again today and EKG showed new bifascicular block and was advised to come to the ER. Currently resting comfortably and hemodynamically stable. History of headaches in the past, currently no headache. Denies any blurred vision, no earache, no runny nose, no sore throat, no cough, no loss of sense of smell or taste. Appetite is okay. No difficulty swallowing, no nausea, no abdominal pain. Normal bowel and somewhat constipated. Denies any blood in stool or black stool. Normal bladder movements. No rash. Principal Diagnosis Chest pain , negative cardiac stress test anxiety disorder Discharge Exam Constitutional WD/WN, vitals as above Eyes PERRL, conjunctivae normal, anicteric sclerae ENMT external ear and nose normal, oropharynx normal Neck trachea midline, no thyromegaly Respiratory normal respiratory effort, lungs clear to auscultation Cardiovascular RRR, no murmur, no edema Gastrointestinal (Abdomen) normal bowel sounds, soft, nontender, no hepatosplenomegaly Musculoskeletal no cyanosis or clubbing, extremities motor strength 5/5 Skin no rashes, warm and dry Neurologic PERRL, EOMI, accommodation nl, no face palsy, no dysarthria Psychiatric A+Ox3, euthymic affect Discharge Data Allergies Allergy/AdvReac Type Severity Reaction Status Date / Time No Known Allergies Allergy Unverified 05/08/20 21:01 Consultations 05/08/20 19:43 ED Decision to Admit Stat 05/08/20 21:51 Consult Case Management - Discharge Planning Routine 05/09/20 08:00 Consult Cardiology Routine Ordered Studies 05/09/20 00:05 US venous doppler [facility] Urgent Hospital Course (1) Chest pain: admitted with chest pain , GUZMAN continues to have intermittent symptoms possible component of underling pulm disease troponin negative , EKG no new change appreciate input from cardiology plan for Pharmacological [place] stress negative hx of smoking years back no recurrence of chest pain , sob (2) Depression: cont out pt meds (3) CKD (chronic kidney disease): cr at baseline stable to be discharge home plan of care updated to pt and all questions answered Total Time Total Time Spent Total Time Spent (In Minutes): 35 min Total Time Includes: Examination of the Patient, Discharge Planning and Medication Reconciliation Discharge Plan Discharge Items Patient Disposition: Home - Self-Care Reason For Visit: CHEST PRESSURE/CHEST PAIN Discharge Diagnosis: Chest pain , negative cardiac stress test anxiety disorder Activity: Resume your previous activity Non-emergency contact: Primary Care Provider Call non-emergency contact if: you have any medication questions Follow-up/Referrals: Kimberlyn Vasques DO [Primary Care Provider] - (Hospital follow up in a week , office will call with appointment ) Diet: Regular Addtl Attending Provider Instructions: Please take all medications as instructed on discharge list below. It is recommended that you follow-up with your primary care physician within 1-2 weeks of hospital discharge to ensure you are still doing well. Please call if you have any questions or problems. You can reach a [facility] hospitalist on duty at [facility] 24 hours a day by calling [phone] Pending Studies at Discharge: No Stand-Alone Forms: [facility], Smoking Cessation Medications and DC Order Prescriptions: New albuterol sulfate 90 mcg/actuation HFA aerosol inhaler 2 inh inhalation Q6H PRN (Reason: shortness of breath or wheezing) Qty: 6.7 R F: 2 omeprazole 20 mg capsule,delayed release(DR/EC) 20 mg PO DAILY Qty: 30 RF: 3 Continued atorvastatin 10 mg tablet 10 mg PO QAM RF: 0 clonazepam 0.5 mg tablet 0.5 mg PO TID PRN (Reason: Anxiety) RF: 0 clopidogrel 75 mg tablet 75 mg PO QAM RF: 0 esomeprazole magnesium 40 mg capsule,delayed release(DR/EC) 40 mg PO QAM RF: 0 levothyroxine [Synthroid] 125 mcg tablet 125 mcg PO QAM RF: 0 lisinopril 10 mg tablet 10 mg PO PM RF: 0 methylphenidate HCl 20 mg tablet extended release 20 mg PO QAM RF: 0 nortriptyline 50 mg capsule 50 mg PO HS RF: 0 bupropion HCl 300 mg tablet extended release 24 hr 300 mg PO QAM RF: 0 bupropion HCl 150 mg tablet extended release 24 hr 150 mg PO QAM RF: 0 ibandronate 150 mg tablet 150 mg PO MONTHLY RF: 0 methylphenidate HCl 10 mg tablet 10 mg PO .QNOON RF: 0 aripiprazole 2 mg tablet 2 mg PO DAILY RF: 0 amlodipine 5 mg tablet 5 mg PO QAM RF: 0 amlodipine 5 mg tablet 2.5 mg PO QPM RF: 0 metoprolol succinate 50 mg tablet extended release 24 hr 50 mg PO DAILY RF: 0 melatonin 1 mg 1 mg PO HS RF: 0 Discharge Orders: Discharge Order (Routine); Ordered 05/12/20 Ordered By: Alison Cavazos/Other Patient Handouts: Medicines for Acid Reflux, Tips to Control Acid Reflux Admission Data Admit Date/Time: 05/09/20 19:14 Attending Provider: Alison Wing Admit Provider: Marvin Mann Primary Care Provider: Kimberlyn Vasques Other Providers: Marvin Mann ; Abrahan Riley ; Rik Cullen ; Cesario Chase ; Mk Haro ; Keith Felix ; Brandin Mann ; Taina Levin ; Nilam Carranza ; Trever Saenz Other Interventions: Discharge Summary Assessment (RN) Last Done: 05/12/20 15:13
== END 2020-05-12 16:09 | disposition home or self-care (01) ==
LOC: ED 18:24 → 2W 18:24